=== PATIENT | female | born 1945 | race Caucasian/White ===

== ENCOUNTER 2016-12-27 15:42 | Emergency (ER) | payer OTHER ==
[~2016-12-27] VITALS: Ht 172.7 cm; Wt 99.8 kg
--- NOTE | 2016-12-27 15:48 | ED MVC/FALL/TRAUMA COMPLAINT ---
History of Present Illness General Chief Complaint: Fall Stated Complaint: FALL.LT HIP PAIN Source: patient, old records, EMS Exam Limitations: no limitations Vital Signs & Intake/Output Vital Signs & Intake/Output Vital Signs Date Time Temp Pulse Resp B/P Pulse O2 O2 Flow FiO2 Ox Delivery Rate 12/27 1807 96.4 74 18 143/63 96 Room Air 12/27 1544 97.1 77 18 188/75 98 Room Air Allergies Coded Allergies: epinephrine (Severe, RAPID HEART RATE 12/27/16) Latex, Natural Rubber (Intermediate, SWELL AND BREAK OUT IN RASH 12/27/16) Reconcile Medications Amlodipine (Norvasc) 2.5 MG TABLET 2 TAB PO DAILY HTN (Reported) Aspirin (Aspirin*) 81 MG TAB.CHEW 1 TAB PO DAILY HEART HEALTH (Reported) Cholecalciferol (Vitamin D3) (Vitamin D3) 400 UNIT TABLET 2 TAB PO DAILY VITAMIN (Reported) Fluticasone Propionate (Flonase Allergy Relief) 50 MCG/ACTUATION SPRAY.SUSP 1 PUFF INH PRN ALLERGIES (Reported) Hydrochlorothiazide 12.5 MG CAPSULE 1 CAP PO DAILY HTN (Reported) Levothyroxine Sodium 75 MCG TABLET 1 TAB PO DAILY HYPOTHYOIDIDSM (Reported) Losartan (Cozaar) 100 MG TABLET 1 TAB PO DAILY HTN (Reported) Mirabegron (Myrbetriq) 50 MG TAB.ER.24H 1 TAB PO DAILY OVERACTIVE BLADDER ( Reported) Multivitamin (Daily Multiple Vitamin) 1 EACH TABLET 1 TAB PO DAILY VIT ( Reported) Rivaroxaban (Xarelto) 20 MG TABLET 1 TAB PO DAILY EMBOLISM (Reported) with food Rosuvastatin Calcium (Crestor) 10 MG TABLET 1 TAB PO DAILY HYPERLIPIDEMIA ( Reported) Triage Nurses Notes Reviewed? yes Onset: Abrupt Duration: hour(s): (1), constant Timing: recent history Severity: moderate Severity Numbers: 4 Injuries/Fall Location: head, pelvis Method of Injury: fall Loss of Consciousness: no loss of consciousness No Modifying Factors: none Associated Symptoms: DENIES HPI: 71 Year old female with history of PE on xarelto presents [facility] from [facility] s/p mechanical fall. pt states she got her foot caught causing her to fall onto her stomach. pt denies head strike, no loc, now presents with a genealized headache aching mild, nonradiatnig a/w left hip and left sided neck pain-.4 out of 10 nonradiating, no numbness or tingling in extremtiies. C collar in place. there is no upper or lower extremity injury or pain. pain is 4 out of 10, pt denies n/ v. no prodromal dizziness or lightheadedness. no vision changes, or other injury (MARYCARMEN GOTTLIEB) Past History Travel History Traveled to [place] past 21 day No Medical History Any Pertinent Medical History? see below for history Cardiovascular: hypertension Respiratory: pulmonary embolism Surgical History Surgical History: none Psychosocial History Tobacco Use: Never used Family History Hx Contributory? No (MARYCARMEN GOTTLIEB) Review of Systems Review of Systems Constitutional: Reports: see HPI. All Other Systems: Reviewed and Negative Comments Review of systems: See HPI, All other systems negative. Constitutional, no chills no fever, no malaise no weight loss HEENT: No visual changes no sore throat no congestion, Cardiovascular: No chest pain , no palpitation , no orthopnea no ankle swelling Skin, no rashes, no change in skin Respiratory: No dyspnea no cough no sputum no hemoptysis GI: No nausea no vomiting, no diarrhea, no bloating/constipation : No dysuria No hematuria, no frequency, no discharge Muscle skeletal: joint pain, no joint swelling, no back pain, no neck pain, Neurologic: No numbness no confusion, headache Psych: No stress Heme/endocrine: No bruising no bleeding no polyuria Immunology: No lymphadenopathy, (MARYCARMEN GOTTLIEB) Physical Exam Physical Exam General Appearance: well developed/nourished, alert, awake Comments: Well-developed well-nourished person in no acute distress HEENT: Normal EENT exam; PERRL, EOMI, no nystagmus. HEAD is atraumatic. moist mucous membranes. NO SCALP HEMATOMA, NO FACIAL BRUISING, LACERATIONS OR ABRASIONS NOTED Neck: Supple, C COLLAR IN PLACE, L SIDED PARASPINAL TENDERNESS, NO MIDLINE TENDERNESS Back: Nontender, no CVA tenderness. Full range of motion Cardiovascular: Regular rate and rhythms no murmurs rubs Respiratory: Chest nontender.There were no bony deformities, no asymmetry. No respiratory distress. Patient speaking in full complete sentences. Breath sounds clear to auscultation bilaterally: NO W/R/R Abdomen: Soft, nontender nondistended, no appreciable organomegaly. Shoulder: Atraumatic/Stable. FROM . Elbow: Atraumatic/stable. FROM. No laxity Upper arm/Forearm: Atraumatic. Nontender. No edema, 5 out of 5 reconnaissance man strength noted to bilateral upper extremities Hand/Wrist: Atraumatic/stable. Skin intact. FROM Pulses: Normal/equal radial pulses bilaterally. Brisk cap refill Hip/Pelvis: Atraumatic/Stable. FROM. LEFT LATERAL HIP TENDER TO PALPATION, NO DEFORMITY, NO ECCHYMOSIS, NO SHORTENING OR ROTATION Knee: Atraumatic/stable. FROM. No joint swelling, no effusion. No laxity. Negative antoinette/anterior drawer test. No pain with ROM Leg: Atraumatic. Nontender. No edema, 5 out of 5 strength in the lower extremity, normal dorsiflexion of great toe bilaterally, gross sensation is intact, patellar tendon reflex 2+ bilaterally. Ankle/Foot: Atraumatic/stable. Skin intact. FROM. No swelling, no effusion. No laxity on exam Pulses: Normal/equal DP/PT pulses bilaterally. Brisk cap refill Neuro: Alert oriented x3, motor sensory normal, cranial nerves II through XII grossly intact. There were no obvious focal neurologic abnormalities. Skin: No appreciable rash on exposed skin, skin is warm and dry. Psych: Mood and affect is normal, memory and judgment is normal. Core Measures ACS in differential dx? No Severe Sepsis Present: No Septic Shock Present: No (MARYCARMEN GOTTLIEB) Progress Differential Diagnosis: C/T/L spine injury, ext injury, ICH, pelvis injury, pnemothorax, spinal cord injury Plan of Care: Orders Procedure Date/time Status XRY-SHOULDER COMPLETE-LEFT 12/27 1653 Active XRY-FOREARM, RIGHT 12/[address] ORDERED, PT DECLINING ANYTHING FOR PAIN WHEN OFFERED. CASE D/W DR DELATORRE D/W WITH THE PT HER CT FINDINGS AND INCIDENTAl findings found today. pt amb by self to bathroom, again declining anything for pain. pending xray d/w the pt her xray reuslts need for supprotive care, tyelnol or motrin. rest, ice, f/u with pmd in 48 hours, return at anytime sooner with any concerns. she feels comfortable withp zoey, i answered all of her questions cleared for dc (MARYCARMEN GOTTLIEB) Diagnostic Imaging: Viewed by Me: CT Scan. Discussed w/RAD: CT Scan. Radiology Impression: PATIENT: HECTOR MCRAE PRESENT AGE: 71 PATIENT ACCOUNT NO: [id number] : 43 LOCATION: [facility] ORDERING PHYSICIAN: MARYCARMEN ROSENBERG SERVICE DATE: 12/27/16 EXAM TYPE: CAT - CT CERV SPINE WO IV CONTRAST; CT HEAD WO IV CONTRAST EXAMINATION: NONCONTRAST HEAD CT NONCONTRAST CERVICAL SPINE CT INDICATION INFORMATION: Trauma, fall, struck head COMPARISON: None TECHNIQUE: Separate noncontrast CT examinations of the head and cervical spine were performed. Coronal and sagittal images were created for each examination at the technologist workstation. DLP: 968.24 mGy-cm FINDINGS: Head: There is no evidence of acute intracranial hemorrhage or territorial infarction. No abnormal mass-effect or midline shift is seen. [place] to white matter differentiation is well preserved. No extra-axial fluid collections are identified. The ventricles are normal in size. There is no abnormal attenuation within the brain parenchyma. The osseous structures and soft tissues are normal. The mastoid air cells and visualized portions of the paranasal sinuses are well-aerated. Cervical spine: There is anatomic alignment of the vertebral bodies and posterior elements. Vertebral body heights and intervertebral disc spaces are maintained. Mild scattered facet arthropathy is noted. No evidence of acute fracture. No prevertebral soft tissue swelling. Visualized portions of the lung apices are unremarkable. The thyroid gland is unremarkable. IMPRESSION: No acute findings identified in the head or cervical spine. DICTATED BY: CYNDIE BAUTISTA MD DATE/TIME DICTATED:12/27/161629 BIOENGINEER:KIERRA DATE/TIME TRANSCRIBED:12/27/161629 CONFIDENTIAL, DO NOT COPY WITHOUT APPROPRIATE AUTHORIZATION. <Electronically signed in Other Vendor System> SIGNED BY: CYNDIE BAUTISTA MD 12/27/16 1643, PATIENT: HECTOR MCRAE PRESENT AGE: 71 PATIENT ACCOUNT NO: [id number] : 43 LOCATION: [facility] ORDERING PHYSICIAN: MARYCARMEN ROSENBERG SERVICE DATE : 12/27/16 EXAM TYPE: CAT - CT ABD & PELVIS W/O IV CONTRAS; CT CHEST WO IV CONTRAST EXAMINATION: CT CHEST, ABDOMEN AND PELVIS WITH CONTRAST CLINICAL INFORMATION: Left upper chest wall pain. Trauma. Status post fall. COMPARISON: No pertinent prior studies are available for comparison. TECHNIQUE: Multidetector volumetric imaging was performed from the thoracic inlet through the pubic symphysis without contrast. Sagittal and coronal reformatted images were obtained on the technologist workstation. DLP: 1032.52 mGy-cm FINDINGS: CHEST: LUNG: No evidence of pneumothorax. Tracheobronchial tree is within normal limits. Mild subsegmental atelectasis noted in the lingula and right middle lobe. Minor dependent atelectatic changes noted in bilateral lower lobes. MEDIASTINUM: Benign lymph nodes noted in the mediastinum. No evidence of lymphadenopathy. No suspicious hematoma or pericardial effusion. Vascular structures are within normal limits. Atherosclerotic disease with intimal calcification descending aorta. PERICARDIUM/PLEURA: No significant effusion. No pleural mass or thickening. CHEST WALL/AXILLA: No evidence of a chest wall hematoma appreciated. Intact thoracic cage.. ABDOMEN/PELVIS: LIVER, GALLBLADDER, BILIARY TREE: The liver is normal in size, shape, and attenuation. No focal hepatic lesion or biliary ductal dilatation is present. Small calculi noted in the dependent portion of the gallbladder. No evidence of acute cholecystitis. No evidence of biliary ductal dilatation. PANCREAS: Unremarkable. SPLEEN: Unremarkable. ADRENAL GLANDS: Unremarkable. KIDNEYS AND URETERS: Lobulated complex cyst posterior aspect mid left kidney with subtle internal septation. Additional subtle low-attenuation cortical lesion bilaterally kidneys too small to be accurately characterized. BLADDER: Unremarkable. GASTROINTESTINAL TRACT: Colonic diverticulosis. No evidence of acute diverticulitis. No acute bowel pathology. ABDOMINAL WALL: Lipoma noted in the right posterior lateral abdominal wall muscles (series 2 image 71). LYMPHOVASCULAR STRUCTURES: Small retroperitoneal lymph nodes. Small lymph node also noted in the right retrocrural region. No gross lymphadenopathy. Atherosclerotic disease of the aorta and aortic branches.. PELVIC VISCERA: Surgical absence of the uterus. Ovaries are not well visualized. OSSEUS STRUCTURES: Degenerative changes thoracic and lumbar spine. No acute osseous abnormality. No acute posttraumatic changes. Mild degenerative changes bilateral hip joints. IMPRESSION: 1. No acute posttraumatic change appreciated. 2. Tiny gallstones. No evidence of acute cholecystitis. 3. Right posterior lateral abdominal wall lipoma. 4. Colonic diverticulosis. No evidence of acute diverticulitis. 5. Complex left renal cyst with thin internal septations. Additional probable cyst bilateral kidneys. 6. Degenerative changes of the spine. DICTATED BY: WICHO CAMPBELL MD DATE/TIME DICTATED:12/27/161630 BIOENGINEER:KIERRA DATE/TIME TRANSCRIBED:1630 CONFIDENTIAL, DO NOT COPY WITHOUT APPROPRIATE AUTHORIZATION. < Electronically signed in Other Vendor System> SIGNED BY: WICHO CAMPBELL MD 12/27/16 1703, PATIENT: HECTOR MCRAE PRESENT AGE: 71 PATIENT ACCOUNT NO: [id number] : 43 LOCATION: ER ORDERING PHYSICIAN: MARYCARMEN ROSENBERG SERVICE DATE: 12/27/16 EXAM TYPE: RAD - XRY-SHOULDER COMPLETE-LEFT EXAMINATION: XR SHOULDER, LEFT CLINICAL INFORMATION: Fall. Pain. COMPARISON: None TECHNIQUE: 3 views. FINDINGS: The bones and soft tissues are normal. No fracture. Glenohumeral and acromioclavicular alignment is anatomic with normal joint space. No abnormal soft tissue calcifications. IMPRESSION: Normal left shoulder. DICTATED BY: HEATHER HAYES MD DATE/TIME DICTATED:12/27/161755 BIOENGINEER:DAVID DATE/TIME TRANSCRIBED:12/27/161755 CONFIDENTIAL, DO NOT COPY WITHOUT APPROPRIATE AUTHORIZATION. <Electronically signed in Other Vendor System> SIGNED BY: HEATHER HAYES MD 12/27/161803, PATIENT: HECTOR MCRAE PRESENT AGE: 71 PATIENT ACCOUNT NO: [id number] : 43 LOCATION: [facility] ORDERING PHYSICIAN: MARYCARMEN ROSENBERG SERVICE DATE: 12/27/16 EXAM TYPE: RAD - XRY-SHOULDER COMPLETE-LEFT EXAMINATION: XR SHOULDER, LEFT CLINICAL INFORMATION: Fall. Pain. COMPARISON: None TECHNIQUE: 3 views. FINDINGS: The bones and soft tissues are normal. No fracture. Glenohumeral and acromioclavicular alignment is anatomic with normal joint space. No abnormal soft tissue calcifications. IMPRESSION: Normal left shoulder. DICTATED BY: HEATHER HAYES MD DATE/TIME DICTATED:12/27/161755 BIOENGINEER:DAVID DATE/TIME TRANSCRIBED:12/27/161755 CONFIDENTIAL, DO NOT COPY WITHOUT APPROPRIATE AUTHORIZATION. <Electronically signed in Other Vendor System> SIGNED BY: HEATHER HAYES MD 12/27/161803, PATIENT: HECTOR MCRAE PRESENT AGE: 71 PATIENT ACCOUNT NO: [id number] : 43 LOCATION: [facility] ORDERING PHYSICIAN: MARYCARMEN ROSENBERG SERVICE DATE : 12/27/16 EXAM TYPE: RAD - XRY-FOREARM, RIGHT EXAMINATION: XR FOREARM, RIGHT CLINICAL INFORMATION: Fall. Pain. COMPARISON: None TECHNIQUE: AP and lateral views of the right forearm were obtained. FINDINGS: No fracture. Radius and ulna intact. The elbow and wrist are normal. No soft tissue abnormality. IMPRESSION: Normal right forearm. DICTATED BY: HEATHER HAYES MD DATE/TIME DICTATED:12/27/161754 BIOENGINEER:KIERRA DATE/TIME TRANSCRIBED:1754 CONFIDENTIAL, DO NOT COPY WITHOUT APPROPRIATE AUTHORIZATION. < Electronically signed in Other Vendor System> SIGNED BY: HEATHER HAYES MD 1758 (MARYCARMEN GOTTLIEB) Departure Departure Time of Disposition: 1808 Disposition: HOME OR SELF CARE Condition: Stable Clinical Impression Primary Impression: Minor head injury Secondary Impressions: Fall, Forearm strain, Hip strain Additional Instructions: rest, ice, tylenol for pain. follow up with your pmd in 48 hours. return with any concerns Departure Forms: Customer Survey General Discharge Information (MARYCARMEN GOTTLIEB) PA/DIRECTOR OF DIGITAL PLATFORMS Co-Sign Statement Statement: ED Attending supervision documentation- [X] I saw and evaluated the patient. I have also reviewed all the pertinent lab results and diagnostic results. I agree with the findings and the plan of care as documented in the PA's/DIRECTOR OF [employer]'s documentation. [X] I have reviewed the ED Record and agree with the PA's/DIRECTOR OF [employer]'s documentation. [] Additions or exceptions (if any) to the PAs/DIRECTOR OF [employer]'s note and plan are summarized below: [] (NANDINI SILVER,RADHIKA)
[2016-12-27] MEDS ORDERED: CRESTOR10 M1 PO (16:00)
[2016-12-27] MEDS ORDERED: NORVASC2.5 M1 PO (16:01)
[2016-12-27] MEDS ORDERED: COZAAR100 M1 PO (16:01)
[2016-12-27] MEDS ORDERED: HYDROCHLOROTH12.5 M3 PO (16:02)
[2016-12-27] MEDS ORDERED: LEVOTHYROXINE75 MCG PO (16:02)
[2016-12-27] MEDS ORDERED: XARELTO20 M2 PO (16:02)
[2016-12-27] MEDS ORDERED: MYRBETRIQ50 M1 PO (16:03)
[2016-12-27] MEDS ORDERED: ASPIRIN81 M4 PO (16:03)
[2016-12-27] MEDS ORDERED: FLONASE ALLERG9.9 ML INH (16:04)
[2016-12-27] MEDS ORDERED: VITAMIN D3400 UNI1 PO (16:04)
[2016-12-27] MEDS ORDERED: DAILY MULTIPLE1 EACH PO (16:04)
--- NOTE | 2016-12-27 16:43 | CT SCAN REPORT ---
EXAMINATION: NONCONTRAST HEAD CT NONCONTRAST CERVICAL SPINE CT INDICATION INFORMATION: Trauma, fall, struck head COMPARISON: None TECHNIQUE: Separate noncontrast CT examinations of the head and cervical spine were performed. Coronal and sagittal images were created for each examination at the technologist workstation. DLP: 968.24 mGy-cm FINDINGS: Head: There is no evidence of acute intracranial hemorrhage or territorial infarction. No abnormal mass-effect or midline shift is seen. [place] to white matter differentiation is well preserved. No extra-axial fluid collections are identified. The ventricles are normal in size. There is no abnormal attenuation within the brain parenchyma. The osseous structures and soft tissues are normal. The mastoid air cells and visualized portions of the paranasal sinuses are well-aerated. Cervical spine: There is anatomic alignment of the vertebral bodies and posterior elements. Vertebral body heights and intervertebral disc spaces are maintained. Mild scattered facet arthropathy is noted. No evidence of acute fracture. No prevertebral soft tissue swelling. Visualized portions of the lung apices are unremarkable. The thyroid gland is unremarkable. IMPRESSION: No acute findings identified in the head or cervical spine.
--- NOTE | 2016-12-27 17:03 | CT SCAN REPORT ---
EXAMINATION: CT CHEST, ABDOMEN AND PELVIS WITH CONTRAST CLINICAL INFORMATION: Left upper chest wall pain. Trauma. Status post fall. COMPARISON: No pertinent prior studies are available for comparison. TECHNIQUE: Multidetector volumetric imaging was performed from the thoracic inlet through the pubic symphysis without contrast. Sagittal and coronal reformatted images were obtained on the technologist workstation. DLP: 1032.52 mGy-cm FINDINGS: CHEST: LUNG: No evidence of pneumothorax. Tracheobronchial tree is within normal limits. Mild subsegmental atelectasis noted in the lingula and right middle lobe. Minor dependent atelectatic changes noted in bilateral lower lobes. MEDIASTINUM: Benign lymph nodes noted in the mediastinum. No evidence of lymphadenopathy. No suspicious hematoma or pericardial effusion. Vascular structures are within normal limits. Atherosclerotic disease with intimal calcification descending aorta. PERICARDIUM/PLEURA: No significant effusion. No pleural mass or thickening. CHEST WALL/AXILLA: No evidence of a chest wall hematoma appreciated. Intact thoracic cage.. ABDOMEN/PELVIS: LIVER, GALLBLADDER, BILIARY TREE: The liver is normal in size, shape, and attenuation. No focal hepatic lesion or biliary ductal dilatation is present. Small calculi noted in the dependent portion of the gallbladder. No evidence of acute cholecystitis. No evidence of biliary ductal dilatation. PANCREAS: Unremarkable. SPLEEN: Unremarkable. ADRENAL GLANDS: Unremarkable. KIDNEYS AND URETERS: Lobulated complex cyst posterior aspect mid left kidney with subtle internal septation. Additional subtle low-attenuation cortical lesion bilaterally kidneys too small to be accurately characterized. BLADDER: Unremarkable. GASTROINTESTINAL TRACT: Colonic diverticulosis. No evidence of acute diverticulitis. No acute bowel pathology. ABDOMINAL WALL: Lipoma noted in the right posterior lateral abdominal wall muscles (series 2 image 71). LYMPHOVASCULAR STRUCTURES: Small retroperitoneal lymph nodes. Small lymph node also noted in the right retrocrural region. No gross lymphadenopathy. Atherosclerotic disease of the aorta and aortic branches.. PELVIC VISCERA: Surgical absence of the uterus. Ovaries are not well visualized. OSSEUS STRUCTURES: Degenerative changes thoracic and lumbar spine. No acute osseous abnormality. No acute posttraumatic changes. Mild degenerative changes bilateral hip joints. IMPRESSION: 1. No acute posttraumatic change appreciated. 2. Tiny gallstones. No evidence of acute cholecystitis. 3. Right posterior lateral abdominal wall lipoma. 4. Colonic diverticulosis. No evidence of acute diverticulitis. 5. Complex left renal cyst with thin internal septations. Additional probable cyst bilateral kidneys. 6. Degenerative changes of the spine.
--- NOTE | 2016-12-27 17:59 | RADIOLOGY REPORT ---
EXAMINATION: XR FOREARM, RIGHT CLINICAL INFORMATION: Fall. Pain. COMPARISON: None TECHNIQUE: AP and lateral views of the right forearm were obtained. FINDINGS: No fracture. Radius and ulna intact. The elbow and wrist are normal. No soft tissue abnormality. IMPRESSION: Normal right forearm.
--- NOTE | 2016-12-27 18:04 | RADIOLOGY REPORT ---
EXAMINATION: XR SHOULDER, LEFT CLINICAL INFORMATION: Fall. Pain. COMPARISON: None TECHNIQUE: 3 views. FINDINGS: The bones and soft tissues are normal. No fracture. Glenohumeral and acromioclavicular alignment is anatomic with normal joint space. No abnormal soft tissue calcifications. IMPRESSION: Normal left shoulder.
[2016-12-27 18:07] VITALS: BP 143/63
== END 2016-12-27 18:38 ==
LOC: ERH 15:42
DX: S09.90XA Unspecified injury of head, initial encounter (principal); S56.911A Strain of unspecified muscles, fascia and tendons at forearm level, right arm, initial encounter; S76.012A Strain of muscle, fascia and tendon of left hip, initial encounter; S39.93XA Unspecified injury of pelvis, initial encounter; M54.2 Cervicalgia; W18.09XA Striking against other object with subsequent fall, initial encounter; Y93.01 Activity, walking, marching and hiking
CPT/HCPCS: 73030-LT; 73090-RT; 74176